=== PATIENT | male | born 1945 | race Caucasian/White ===

== ENCOUNTER 2016-11-04 19:58 | Inpatient (IN) | payer MEDICARE, MEDICAID ==
[~2016-11-04] VITALS: Ht 172.7 cm; Wt 63.0 kg
--- NOTE | 2016-11-04 20:06 | NUR ---
PT COMES IN WITH RIGHT SIDE PORTOCATH, ACCESSED STEARNS NEEDLE 19G....
--- NOTE | 2016-11-04 20:10 | NUR ---
PT BIB [facility] FROM HOME WITH C/O ABD PAIN.PT DIAGNOSED IN 06/03 WITH STOMACH,COLON,AND LIVER CA.JUST FINISHED CHEMO TRMT.PT AWAKE AND MOANING RUBBING ABD.ACCORDING TO MARY PT TOOK A NORCO ABOUT 1P TODAY.SHE STATED PT WAS IN [place] OVER LAST WEEKEND AND THEN SENT HOME, PT IS ALERT, ORIENTED X 1-2, HAS MOMENTS OF CONFUSION, NO RESP DISTRESS NOTED OR REPORTED UPON ASSESSMENT... MD AT BEDSIDE...
[2016-11-04] MEDS ORDERED: IV NORMAL SALINE 1000 ML BAG IV ONE (20:15)
[2016-11-04] MEDS ORDERED: ONDANSETRON 4 MG/2 ML VIAL IV ONE (20:15)
[2016-11-04] MEDS ORDERED: HYDROMORPHONE 1 MG/1 ML DISP.SYRIN IV ONE (20:15)
[2016-11-04] MEDS ORDERED: HYDROCO/APAP TAB 5-325MG (20:16)
[2016-11-04] MEDS ORDERED: OMEPRAZOLE CAP 40MG (20:16)
[2016-11-04] MEDS ORDERED: ONDANSETRON 8 MG (20:16)
[2016-11-04 20:20] LABS: *OCCULT BLOOD STOOL NEGATIVE (NEGATIVE)
[2016-11-04 20:22] LABS: BASOPHILS # (AUTO) 0.1 K/uL (0.0-8.0); BASOPHILS % (AUTO) 1.6 % (0.0-2.0); EOSINOPHILS # (AUTO) 0.3 K/uL (0.0-0.7); EOSINOPHILS % (AUTO) 5.8 % (0.0-7.0); HEMATOCRIT 34.8 % (40-50); HEMOGLOBIN 11.9 G/DL (14.0-18.0); LYMPHOCYTES # (AUTO) 1.6 K/UL (0.8-4.8); LYMPHOCYTES % (AUTO) 30.5 % (20.5-51.5); MEAN CORPUSCULAR HEMOGLOBIN 33.1 UUG (27.0-31.0); MEAN CORPUSCULAR HGB CONC 34 g/dL (32.0-37.0); MEAN CORPUSCULAR VOLUME 97.2 FL (82.0-92.0); MONOCYTES # (AUTO) 0.3 K/UL (0.1-1.30); MONOCYTES % (AUTO) 5.5 % (0.0-11.0); NEUTROPHILS # (AUTO) 2.8 K/UL (1.8-8.9); NEUTROPHILS % (AUTO) 56.6 % (38.5-71.5); PLATELET COUNT (AUTO) 123 K/UL (150-450); RED BLOOD CELL COUNT(AUTO) 3.58 MIL/UL (4.7-6.1); WHITE BLOOD COUNT (AUTO) 5.1 K/UL (4.0-11.2)
[2016-11-04] MEDS ORDERED: HYDROMORPHONE 1 MG/1 ML DISP.SYRIN ONE (20:28)
[2016-11-04] MEDS ORDERED: ONDANSETRON 4 MG/2 ML VIAL ONE (20:28)
[2016-11-04 21:11] LABS: ALANINE AMINOTRANSFERASE 100 U/L (16-63); ALKALINE PHOSPHATASE 334 U/L (50-136); ASPARTATE AMINOTRANSFERASE 97 U/L (15-37); BILIRUBIN,DIRECT 0.4 mg/dL (0.0-0.2); BILIRUBIN,TOTAL 1.1 mg/dL (0.2-1.0); CARBON DIOXIDE 21 mmol/L (21-32); CHLORIDE 98 mmol/L (98-107); GLUCOSE 97 mg/dL (74-106); LIPASE 142 U/L (73-393); POTASSIUM 3.5 mmol/L (3.5-5.1); TOTAL PROTEIN, SERUM 7.6 g/dL (6.4-8.2); UREA NITROGEN, BLOOD 11 mg/dL (7-18)
[2016-11-04 21:57] LABS: *BILIRUBIN,URIN NEGATIVE (NEGATIVE); *BLOOD, URINE NEGATIVE (NEGATIVE); *CLARITY,URINE CLEAR (CLEAR); *COLOR,URINE YELLOW (YELLOW); *KETONES,URINE NEGATIVE (NEGATIVE); *PROTEIN,URINE 1+ (NEGATIVE); LEUKOCYTE ESTERASE ,URINE NEGATIVE (NEGATIVE); NITRITE, URINE NEGATIVE (NEGATIVE); PH,URINE 8.5 (5.0-8.0); UGLUCOSE NEGATIVE (NEGATIVE)
[2016-11-04 22:06] LABS: MUCUS,URINE FEW /LPF (0-FEW); SPERM,URINE FEW /HPF (NONE SEEN); WBC,URINE 0-3 /HPF (0-3)
--- NOTE | 2016-11-04 22:49 | NUR ---
Call placed to [facility], Dr. Ken will be paged.
[2016-11-04] MEDS ORDERED: HYDROCODONE/APAP 5-325MG TABLET PO PRN (23:30)
[2016-11-04] MEDS ORDERED: ACETAMINOPHEN 325 MG TABLET PO PRN (23:30)
[2016-11-04] MEDS ORDERED: Z GUARD REMEDY PASTE 57 GM TUBE TOP PRN (23:30)
[2016-11-04] MEDS ORDERED: MAGNESIUM HYDROXIDE 30 ML LIQUID UDC PO PRN (23:30)
[2016-11-04] MEDS ORDERED: ONDANSETRON 4 MG/2 ML VIAL IV PRN (23:30)
--- NOTE | 2016-11-04 23:39 | NUR ---
Pt. admitted to Telemetry , under care of Dr. Ken, [place]ongs List completed, pt is alert, confused, family at bedside... no resp distress noted or reported upon transfer assessment...
[2016-11-05] VITALS: BP 143/84
--- NOTE | 2016-11-05 | NUR ---
NSG: PT RECEIVED A/O X 4, FR ER VIA WC WITH DX OF ENCEPHALOPATHY. DENIES ABD PAIN OR ANY DISCOMFORT. TELE, SR WITH OCCASSIONAL PAC'S. CONT TO MONITOR.
[2016-11-05 04:00] VITALS: BP 114/80
--- NOTE | 2016-11-05 05:46 | NUR ---
nsg: all needs attended. denies discomfort. tele, sr with pac's. cont to monitor. niece at the bedside.
[2016-11-05 06:35] LABS: CARBON DIOXIDE 24 mmol/L (21-32); CHLORIDE 103 mmol/L (98-107); CHOLESTEROL 158 mg/dL (<200); GLUCOSE 82 mg/dL (74-106); HDL CHOLESTEROL 55 mg/dL (40-60); MAGNESIUM 1.4 mg/dL (1.8-2.4); PHOSPHOROUS 3.5 mg/dL (2.5-4.9); POTASSIUM 3.5 mmol/L (3.5-5.1); TRIGLYCERIDES 102 MG/DL (30-150); UREA NITROGEN, BLOOD 11 mg/dL (7-18)
[2016-11-05 06:49] LABS: EOSINOPHILS # (AUTO) 0.2 K/uL (0.0-0.7); EOSINOPHILS % (AUTO) 5.2 % (0.0-7.0); HEMATOCRIT 32.2 % (40-50); HEMOGLOBIN 10.9 G/DL (14.0-18.0); LYMPHOCYTES # (AUTO) 1.3 K/UL (0.8-4.8); LYMPHOCYTES % (AUTO) 29.1 % (20.5-51.5); MEAN CORPUSCULAR HGB CONC 34 g/dL (32.0-37.0); MEAN CORPUSCULAR VOLUME 97.5 FL (82.0-92.0); MONOCYTES # (AUTO) 0.2 K/UL (0.1-1.30); MONOCYTES % (AUTO) 4.8 % (0.0-11.0); NEUTROPHILS # (AUTO) 2.9 K/UL (1.8-8.9); NEUTROPHILS % (AUTO) 59.9 % (38.5-71.5); PLATELET COUNT (AUTO) 117 K/UL (150-450); WHITE BLOOD COUNT (AUTO) 4.6 K/UL (4.0-11.2)
[2016-11-05] MEDS ORDERED: PANTOPRAZOLE SODIUM 40 MG TABLET.DR PO SCH (07:00)
--- NOTE | 2016-11-05 08:00 | NUR ---
awake alert and oriented x 2, denies of abdominal pain, no nausea/vomiting, family at bedside, tele SR 70's, explained plan of care- verbalized understanding, needs attended, right chest wall portacath patent, safety measures maintained, call light within reach
[2016-11-05] MEDS: MAGNESIUM SULFATE/D5W 100 ML IV SCH ×4 (10:26→13:54)
[2016-11-05 11:40] VITALS: BP 116/69
--- NOTE | 2016-11-05 13:00 | NUR ---
seen by Dr Ken- spoke to family- pt is being discharged home
--- NOTE | 2016-11-05 15:35 | NUR ---
discharge instructions given by RN and medication instructions by pharmacist to daughter and sister- verbalized understanding, IV d/cd via portacath- no bleeding noted at site- dsg applied on site.
--- NOTE | 2016-11-05 16:05 | NUR ---
escorted to car per w/c in stable condition under family's care, all belongings with him
== END 2016-11-05 16:05 | disposition home or self-care (01) | DRG 92 ==
LOC: ER 20:02 → TELE 23:39
PROVIDERS: ADMIT Family Medicine; ATTEND Family Medicine
DX: G92 Toxic encephalopathy (principal); C78.7 Secondary malignant neoplasm of liver and intrahepatic bile duct; E87.1 Hypo-osmolality and hyponatremia; E44.0 Moderate protein-calorie malnutrition; D53.9 Nutritional anemia, unspecified; E83.42 Hypomagnesemia; G89.29 Other chronic pain; Z87.891 Personal history of nicotine dependence; R41.82 Altered mental status, unspecified; T45.1X5A Adverse effect of antineoplastic and immunosuppressive drugs, initial encounter; Y92.009 Unspecified place in unspecified non-institutional (private) residence as the place of occurrence of the external cause; Z85.038 Personal history of other malignant neoplasm of large intestine
CPT/HCPCS: 36415; 70030-TC; 70450; 71010; 83690; 83735; 84100; 85025; 85730; 93005; J1170; J2405; J3475; J7030; J7050